=== PATIENT | male | born 1990 | race Caucasian/White ===

== ENCOUNTER 2020-08-30 10:00 | Emergency (ER) | payer OTHER ==
[~2020-08-30] VITALS: Ht 175.3 cm; Wt 93.2 kg
[2020-08-30 10:12] VITALS: TEMP 98.7
[2020-08-30 11:28] VITALS: BP 143/84; PULSE 84
== END 2020-08-30 11:34 | disposition home or self-care (01) ==
LOC: COL.ER 10:00
DX: U07.1 COVID-19 (principal); B34.9 Viral infection, unspecified

== ENCOUNTER 2020-09-02 09:14 | Emergency (ER) | payer OTHER ==
[~2020-09-02] VITALS: Ht 175.3 cm; Wt 86.4 kg
[2020-09-02 11:08] LABS: HEMATOCRIT 43.3 % (42.0-52.0); HEMOGLOBIN 14.8 g/dl (13.5-18.0); MEAN CELL VOLUME 86 fl (80.0-100.0); MEAN CORPUSCULAR HEMOGLOBIN 29 pg (27.0-31.0); MEAN CORPUSCULAR HGB CONC 34 g/dl (33.0-37.0); MEAN PLATELET VOLUME 9.9 fl (7.4-10.4); PLATELET COUNT 121 K/mm3 (130-400); RED BLOOD COUNT 5.06 M/mm3 (4.20-5.60); REDCELL DISTRIBUTION WIDTH-CV 12.2 % (11.5-14.5)
[2020-09-02 11:15] LABS: ALBUMIN 4.7 gm/dL (3.5-5.0); BILIRUBIN,TOTAL 0.4 mg/dL (0.0-1.0); C-REACTIVE PROTEIN 3.5 mg/dL (0.0-0.9); CALCIUM 9.4 mg/dL (8.4-10.2); CREATININE, serum 1.11 (0.66-1.25); POTASSIUM 4.3 mmol/L (3.4-5.0); TOTAL PROTEIN 8.2 gm/dL (6.4-8.2)
[2020-09-02 11:45] LABS: BAND 14 % (0-10); NEUTROPHILS 55 % (42.0-75.2)
[2020-09-02 11:46] LABS: OVALOCYTES 1+; PLATELET ESTIMATE DECREASED (NORMAL)
[2020-09-02 11:47] LABS: LYMPHOCYTE 23 % (20.0-51.0)
[2020-09-02] MEDS ORDERED: ZOFRAN 4MG T4 MG/TAB PO (13:41)
[2020-09-02] MEDS ORDERED: ZITHROMAX Z PA250 MG PO (13:41)
[2020-09-02 13:55] VITALS: BP 125/84; PULSE 90; TEMP 99.1
== END 2020-09-02 14:00 | disposition home or self-care (01) ==
LOC: COL.ER 09:14
PROVIDERS: Family Medicine
DX: U07.1 COVID-19 (principal); J12.82 Pneumonia due to coronavirus disease 2019
CPT/HCPCS: J1885; J2405; J7120; Q9967